=== PATIENT | male | born 1975 | race Caucasian/White ===

== ENCOUNTER 2022-09-25 12:11 | Emergency (ER) | payer BC, MEDICAID ==
[~2022-09-25] VITALS: Ht 182.9 cm; Wt 117.9 kg
[~2022-09-25 12:11] MED LIST: CARB200T PO
--- NOTE | 2022-09-25 12:15 | NUR ---
RECEIVED PT 47 YRS MALE FROM HOME C/O COGHING AND CONGESTION FOR 4 DAYS
--- NOTE | 2022-09-25 12:30 | NUR ---
SEEN BY DR. COLIN
[2022-09-25] MEDS ORDERED: AMOX-430 PO (12:37)
[2022-09-25] MEDS ORDERED: GUAI-671 PO (12:37)
--- NOTE | 2022-09-25 12:46 | NUR ---
Patient discharged to home in stable condition. Written and verbal after care instructions given. Patient verbalizes understanding of instruction.
[2022-09-25 12:56] VITALS: BP 122/84
== END 2022-09-25 12:57 | disposition home or self-care (01) ==
LOC: ER 12:19
DX: H66.91 Otitis media, unspecified, right ear (principal); G40.909 Epilepsy, unspecified, not intractable, without status epilepticus; Z98.890 Other specified postprocedural states; Z79.899 Other long term (current) drug therapy